=== PATIENT | male | born 1935 | race Caucasian/White ===

== ENCOUNTER → 2017-04-14 | Outpatient (CLI) | payer OTHER ==
[~2017-04-14] MED LIST: AMLO5 PO; ASPI325 PO; ATEN50 PO; CALCIUM 1,0001 EACH PO; Cyclobenzaprine5 MG PO; Desyrel50 MG; FISH OIL 1,2001 EACH PO; HYDR1TAB94 PO; SERT100 PO; VITAMIN E1000 UNIT PO
[2017-04-14 15:16] LABS: BASOPHILS ABSOLUTE AUTO 0.02 K/mm3 (0.00-0.23); BASOPHILS PERCENT AUTO 0 % (0-2); EOSINOPHILS ABSOLUTE AUTO 0.08 K/mm3 (0.00-0.68); EOSINOPHILS PERCENT AUTO 1 % (0-6); Hematocrit 33.4 % (37.0-53.0); IMMATURE GRAN ABSOLUTE AUTO 0.03 K/mm3 (0.00-0.10); IMMATURE GRAN PERCENT AUTO 0 % (0-1); LYMPHOCYTES ABSOLUTE AUTO 1.04 K/mm3 (0.84-5.20); LYMPHOCYTES PERCENT AUTO 12 % (21-46); MONOCYTES PERCENT AUTO 9 % (4-13); Mean Corpuscular HGB 30.8 pg (26.0-34.0); Mean Corpuscular HGB Conc 32.9 g/dL (31.5-36.5); Mean Corpuscular Volume 94 fL (80-100); Mean Platelet Volume 9.4 fL (9.1-12.4); NEUTROPHILS ABSOLUTE AUTO 6.87 K/mm3 (1.96-9.15); NEUTROPHILS PERCENT AUTO 78 % (41-73); Platelet Count 172 K/mm3 (150-400); RDW Coefficient Variation 12.7 % (11.7-14.2); RDW Standard Deviation 43.8 fL (35.1-46.3); Red Blood Cell Count 3.57 M/mm3 (4.30-5.90); White Blood Cell Count 8.84 K/mm3 (4.00-11.30)
[2017-04-14 15:23] LABS: Bun/Creatinine Ratio 33.9 (12.0-20.0); Calcium, Blood 9.8 mg/dL (8.5-10.1); Creatinine, Blood 2.57 mg/dL (0.60-1.20)
== END | disposition home or self-care (01) ==
LOC: LAB EV 15:13
PROVIDERS: Family Medicine
DX: M54.5 Low back pain (principal)
CPT/HCPCS: 80048; 85025

== ENCOUNTER → 2017-04-15 | Outpatient (CLI) | payer OTHER ==
[2017-04-15 11:03] LABS: BASOPHILS ABSOLUTE AUTO 0.01 K/mm3 (0.00-0.23); BASOPHILS PERCENT AUTO 0 % (0-2); EOSINOPHILS ABSOLUTE AUTO 0.28 K/mm3 (0.00-0.68); EOSINOPHILS PERCENT AUTO 5 % (0-6); Hematocrit 31.6 % (37.0-53.0); Hemoglobin 10.4 g/dL (13.5-17.5); IMMATURE GRAN ABSOLUTE AUTO 0.01 K/mm3 (0.00-0.10); IMMATURE GRAN PERCENT AUTO 0 % (0-1); LYMPHOCYTES ABSOLUTE AUTO 0.71 K/mm3 (0.84-5.20); LYMPHOCYTES PERCENT AUTO 12 % (21-46); MONOCYTES ABSOLUTE AUTO 0.75 K/mm3 (0.16-1.47); MONOCYTES PERCENT AUTO 13 % (4-13); Mean Corpuscular HGB Conc 32.9 g/dL (31.5-36.5); Mean Corpuscular Volume 94 fL (80-100); Mean Platelet Volume 9.2 fL (9.1-12.4); NEUTROPHILS PERCENT AUTO 69 % (41-73); Platelet Count 156 K/mm3 (150-400); RDW Coefficient Variation 12.9 % (11.7-14.2); RDW Standard Deviation 44.5 fL (35.1-46.3); Red Blood Cell Count 3.35 M/mm3 (4.30-5.90); White Blood Cell Count 5.76 K/mm3 (4.00-11.30)
[2017-04-15 11:19] LABS: Albumin, Blood 3.1 g/dL (3.4-5.0); Bilirubin, Total 0.2 mg/dL (0.1-1.0); Bun/Creatinine Ratio 32.5 (12.0-20.0); Calcium, Blood 9.1 mg/dL (8.5-10.1); Creatinine, Blood 2.4 mg/dL (0.60-1.20); Globulin, Blood 3.2 g/dL (2.2-4.0); Potassium, Blood 5.9 mmol/L (3.5-5.5); Total Protein, Blood 6.3 g/dL (6.4-8.2)
== END ==
LOC: LAB EV 11:00
PROVIDERS: Family Medicine
DX: J06.9 Acute upper respiratory infection, unspecified (principal)
CPT/HCPCS: 80053; 85025

== ENCOUNTER → 2019-06-04 | Outpatient (CLI) | payer OTHER ==
[2019-06-04 11:54] LABS: Source, Urine Clean Catch
[2019-06-04 12:07] LABS: Leukocyte Esterase, Urine Neg (Neg); Nitrite, Urine Neg (Neg)
[2019-06-04 12:08] LABS: Appearance, Urine Clear (Clear); Bilirubin, Urine Neg (Neg); Blood, Urine Neg (Neg); Color, Urine Yellow (P-Yellow); Glucose Qualitative, Urine Neg (Normal); Ketones, Urine Neg (Neg); Protein, Urine 3+ (Neg); Urobilinogen, Urine NORM (Normal)
[2019-06-04 12:55] LABS: Bacteria Not Seen /hpf; Red Blood Cells, Urine Not Seen /hpf (0-2); Squamous Epithelial Cells Rare /hpf (Few); White Blood Cells, Urine 0-2 /hpf (0-5)
== END | disposition home or self-care (01) ==
LOC: LAB EV 11:30
PROVIDERS: Physician Assistant
DX: R35.0 Frequency of micturition (principal)
CPT/HCPCS: 81001

== ENCOUNTER → 2019-07-05 | Outpatient (CLI) | payer OTHER ==
[2019-07-05 16:55] LABS: Appearance, Urine Clear (Clear); Bilirubin, Urine Neg (Neg); Blood, Urine Neg (Neg); Color, Urine Yellow (P-Yellow); Glucose Qualitative, Urine Neg (Normal); Ketones, Urine Neg (Neg); Leukocyte Esterase, Urine Neg (Neg); Nitrite, Urine Neg (Neg); Protein, Urine 3+ (Neg); Specific Gravity, Urine 1.015 (1.003-1.022); Urobilinogen, Urine NORM (Normal)
[2019-07-05 16:56] LABS: Bacteria Not Seen /hpf; Hyaline Casts Rare /lpf (0-2); Red Blood Cells, Urine Not Seen /hpf (0-2); Squamous Epithelial Cells Rare /hpf (Few); White Blood Cells, Urine Not Seen /hpf (0-5)
== END | disposition home or self-care (01) ==
LOC: LAB EV 16:33
PROVIDERS: Physician Assistant
DX: R35.0 Frequency of micturition (principal)
CPT/HCPCS: 81001

== ENCOUNTER 2019-08-30 13:05 | Inpatient (IN) | payer OTHER ==
[~2019-08-30] VITALS: Ht 182.9 cm; Wt 85.0 kg
[~2019-08-30 13:05] MED LIST changes: -ASPI325 PO; +Aspirin EC81 MG PO
[2019-08-30] MEDS ORDERED: FUROSEMIDE20 MG PO (13:26)
[2019-08-30] MEDS ORDERED: QUETIAPINE FUMA25 MG PO (13:27)
[2019-08-30 13:43] LABS: BASOPHILS ABSOLUTE AUTO 0.02 K/mm3 (0.00-0.23); BASOPHILS PERCENT AUTO 0 % (0-2); EOSINOPHILS PERCENT AUTO 6 % (0-6); Hematocrit 33.8 % (37.0-53.0); Hemoglobin 10.8 g/dL (13.5-17.5); IMMATURE GRAN ABSOLUTE AUTO 0.01 K/mm3 (0.00-0.10); IMMATURE GRAN PERCENT AUTO 0 % (0-1); LYMPHOCYTES ABSOLUTE AUTO 2.69 K/mm3 (0.84-5.20); LYMPHOCYTES PERCENT AUTO 33 % (21-46); MONOCYTES ABSOLUTE AUTO 0.69 K/mm3 (0.16-1.47); MONOCYTES PERCENT AUTO 8 % (4-13); Mean Corpuscular HGB 30.9 pg (26.0-34.0); Mean Corpuscular Volume 97 fL (80-100); Mean Platelet Volume 9.8 fL (9.1-12.4); NEUTROPHILS ABSOLUTE AUTO 4.37 K/mm3 (1.96-9.15); NEUTROPHILS PERCENT AUTO 53 % (41-73); Platelet Count 171 K/mm3 (150-400); RDW Coefficient Variation 12.6 % (11.7-14.2); RDW Standard Deviation 44.9 fL (35.1-46.3); White Blood Cell Count 8.28 K/mm3 (4.00-11.30)
[2019-08-30 14:03] LABS: Albumin, Blood 3.5 g/dL (3.4-5.0); Albumin/Globulin Ratio 0.9 (0.8-1.8); Bilirubin, Total 0.2 mg/dL (0.1-1.0); Bun/Creatinine Ratio 24.7 (12.0-20.0); Calcium, Blood 9.9 mg/dL (8.5-10.1); Creatinine, Blood 3.76 mg/dL (0.60-1.20); Globulin, Blood 3.7 g/dL (2.2-4.0); Potassium, Blood 5.8 mmol/L (3.5-5.5); Total Protein, Blood 7.2 g/dL (6.4-8.2)
[2019-08-30] MEDS ORDERED: IRON PO (14:19)
[2019-08-30 15:11] LABS: Magnesium, Blood 2.4 mg/dL (1.6-2.4); Phosphorus, Blood 4.2 mg/dL (2.5-4.9)
[2019-08-30 19:55] LABS: Albumin, Blood 3.7 g/dL (3.4-5.0); Albumin/Globulin Ratio 0.9 (0.8-1.8); Bilirubin, Total 0.3 mg/dL (0.1-1.0); Bun/Creatinine Ratio 25.8 (12.0-20.0); Calcium, Blood 10.2 mg/dL (8.5-10.1); Creatinine, Blood 3.57 mg/dL (0.60-1.20); Potassium, Blood 5.2 mmol/L (3.5-5.5); Total Protein, Blood 7.7 g/dL (6.4-8.2)
--- NOTE | 2019-08-30 23:50 | NUR ---
HIGH BP AFTER PT STOOD TO USE RR. WILL RETAKE AFTER REST.
[2019-08-31 04:36] LABS: International Normalized Ratio 0.99; Prothrombin Time Results 10.6 Sec (9.7-11.5)
[2019-08-31 04:37] LABS: Magnesium, Blood 2.3 mg/dL (1.6-2.4)
[2019-08-31 04:38] LABS: Albumin, Blood 3.1 g/dL (3.4-5.0); Albumin/Globulin Ratio 0.9 (0.8-1.8); Bilirubin, Total 0.4 mg/dL (0.1-1.0); Bun/Creatinine Ratio 25.4 (12.0-20.0); Calcium, Blood 9.6 mg/dL (8.5-10.1); Creatinine, Blood 3.55 mg/dL (0.60-1.20); Globulin, Blood 3.5 g/dL (2.2-4.0); Total Protein, Blood 6.6 g/dL (6.4-8.2)
--- NOTE | 2019-08-31 05:28 | NUR ---
SHIFT SUMMARY PT SLEEPING IN ROOM COMFORTABLY AT THIS TIME. NO ACUTE CHANGES IN STATUS T/O NIGHT. PT SLEPT WELL. DENIED ANY CP OR SOB RESP EVEN UNLABORED ON RA W. SATS >92%. DEXTROSE 5% INFUSING IN PIV AT 50ML/HR. PT HR REMAINS LOW. MADE NPO AT MIDNIGHT FOR PACEMAKER PLACEMENT TODAY. PT ALSO SCHEDULED FOR ECHO TODAY. DENIED OTHER NEEDS PT USES CALL LIGHT APPRORIATELY. CALL LIGHT IN REACH.
--- NOTE | 2019-08-31 06:22 | NUR ---
UPDATE TERMINAL MAKE UP OPERATOR IN TO REVIEW TELE. 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 HR INCREASED DURING NIGHT. PER CADIOLOGIST OK TO LIFT NPO STATUS, AND WILL MONITOR 24HR TO EVALUATE IF NEED FOR PACEMAKER REMAINS. ORDERS TO AMBULATE PT WHILE MONITORING HR.
--- NOTE | 2019-08-31 17:50 | NUR ---
PCU DAYSHIFT SUMMARY PATIENT ALERT AND ORIENTED TO SELF, LOCATION AND FAMILY. PATIENT CONFUSED TO PLAN OF CARE AT TIMES, REORIENTS EASILY. PATIENT WORKED WITH PT/OT THIS SHIFT. SBA WITH WALKER - STRONG STAND AND SHUFFLED GAIT NOTED. PATIENT SINUS RADHA AT 28 BEATS PER MIN THIS AM -> DUAL CHAMBER PACEMAKER PLACED TODAY -> NOW 100% ATRIAL PACED AT 60 BPM. RESP E/U ON ROOM AIR. PATIENT DENIES PAIN. HYPERTENSION NOTED AFTER PACER - NOTIFIED MD DELANEY -> NEW ORDERS GIVEN. FAMILY AT BEDSIDE T/O SHIFT, VERY SUPPORTIVE. PACER SITE WNL WITH NO S/SX OF BLEEDING NOTED -> ARM SLING APPLIED PER ORDER. WILL CONTINUE TO MONITOR AND REPORT TO NOC SHIFT RN.
--- NOTE | 2019-09-01 03:41 | NUR ---
ASSUMED CARE OF PATIENT AT 1915. PATIENT CONFUSED ON AND OFF, IS ABLE TO GET REORIENTED EASILY. COACHED PATIENT ON THE USE OF CALL LIGHT FOR ANY AMBULATING REQUIRED. PATIENT AGREEABLE AND HITS CALL LIGHT WHEN NEEDING TO USE BATHROOM. CALL LIGHT WITHIN REACH, BED ALARM ON, BED LOWERED TO LOWEST POSITION. WILL CONTINUE TO MONITOR UNTIL END OF SHIFT.
[2019-09-01 04:30] LABS: Hematocrit 34.8 % (37.0-53.0)
[2019-09-01 05:10] LABS: Bun/Creatinine Ratio 22.2 (12.0-20.0); Calcium, Blood 9.1 mg/dL (8.5-10.1); Creatinine, Blood 3.33 mg/dL (0.60-1.20); Potassium, Blood 4.8 mmol/L (3.5-5.5)
--- NOTE | 2019-09-01 07:32 | NUR ---
AM NOTE... ASSUMED CARE OF PT APROX 0700, PT IS A&Ox3 WITH DEMENTIA AT BASELINE, PT IS 1 DAY S/P PACEMAKER PLACEMENT. PT IS CURRENTLY 100% PACED IN THE 60'S PER PACKAGING OPERATOR. PT HAS NO EDEMA ON ASSESSMENT. PACER SITE IS C/D/I WITH NO SWELLING BLEEDING OR HEMATOMA NOTED. PT DENIES PAIN AT THIS TIME. L/S CLEAR T/O DIM IN THE BASES ON RA. BT PRESENT AND NORMOACTIVE,ABD IS SOFT AND NONTENDER TO PALP. VS STABLE AT THIS TIME. POSSIBLE D/C HOME TODAY. CALL LIGHT IN REACH , BED ALARM IS ON WILL CONTINUE TO MONITOR.
[2019-09-07 11:09] LABS: ANA DIRECT Negative (Negative); ANTIMYELOPEROXIDASE (MPO) ABS <9.0 U/mL (0.0-9.0); ANTIPROTEINASE 3 (PR-3) ABS <3.5 U/mL (0.0-3.5); ATYPICAL PANCA <1:20 titer (Neg:<1:20); CYTOPLASMIC (C-ANCA) <1:20 titer (Neg:<1:20); PERINUCLEAR (P-ANCA) <1:20 titer (Neg:<1:20)
== END 2019-09-01 15:18 | disposition home or self-care (01) | DRG 908 ==
LOC: ER 13:05 → PCU 15:49
PROVIDERS: Emergency Medicine; Internal Medicine; Internal Medicine Cardiovascular Disease; Nurse Practitioner Acute Care; Student in an Organized Health Care Education/Training Program; ADMIT Family Medicine
PROC: 0JH606Z Insertion of Pacemaker, Dual Chamber into Chest Subcutaneous Tissue and Fascia, Open Approach (ICD-10-PCS; principal; 2019-08-31)
PROC: 02HK3JZ Insertion of Pacemaker Lead into Right Ventricle, Percutaneous Approach (ICD-10-PCS; 2019-08-31)
PROC: 02H63JZ Insertion of Pacemaker Lead into Right Atrium, Percutaneous Approach (ICD-10-PCS; 2019-08-31)
DX: T44.7X1A Poisoning by beta-adrenoreceptor antagonists, accidental (unintentional), initial encounter (principal); N18.4 Chronic kidney disease, stage 4 (severe); F02.81 Dementia in other diseases classified elsewhere, unspecified severity, with behavioral disturbance; I44.39 Other atrioventricular block; I12.9 Hypertensive chronic kidney disease with stage 1 through stage 4 chronic kidney disease, or unspecified chronic kidney disease; Z79.82 Long term (current) use of aspirin; E78.5 Hyperlipidemia, unspecified; E87.5 Hyperkalemia; D50.9 Iron deficiency anemia, unspecified; G30.9 Alzheimer's disease, unspecified
CPT/HCPCS: 33208; 36415; 71045; 71046; 80048; 80053; 82550; 82947; 83520; 83735; 84100; 84443; 85014; 85018; 85025; 85610; 86256; 86850; 86900; 86901; 93005; 93010; 93306; 96361; 96365; 96375; 96376; 97110; 97116; 97162; 99152; 99153; 99285-25; A9270; C1781; C1785; C1894; C1898; J0610; J1610; J1644; J1815; J2250; J2405; J3010; J3370; J7030; J7040; J7070

== ENCOUNTER 2021-04-23 09:30 | Inpatient (IN) | payer OTHER ==
[~2021-04-23] VITALS: Ht 182.9 cm; Wt 84.5 kg
[~2021-04-23 09:30] MED LIST changes: -Desyrel50 MG; +FUROSEMIDE20 MG PO; +IRON PO; +QUETIAPINE FUMA25 MG PO; +TRAZ50 PO
[2021-04-23 10:15] LABS: BASOPHILS ABSOLUTE AUTO 0.02 K/mm3 (0.00-0.23); BASOPHILS PERCENT AUTO 0 % (0-2); EOSINOPHILS ABSOLUTE AUTO 0.02 K/mm3 (0.00-0.68); EOSINOPHILS PERCENT AUTO 0 % (0-6); Hematocrit 28.8 % (37.0-53.0); Hemoglobin 9.2 g/dL (13.5-17.5); IMMATURE GRAN ABSOLUTE AUTO 0.06 K/mm3 (0.00-0.10); IMMATURE GRAN PERCENT AUTO 0 % (0-1); LYMPHOCYTES ABSOLUTE AUTO 0.38 K/mm3 (0.84-5.20); LYMPHOCYTES PERCENT AUTO 3 % (21-46); MONOCYTES ABSOLUTE AUTO 0.93 K/mm3 (0.16-1.47); MONOCYTES PERCENT AUTO 7 % (4-13); Mean Corpuscular HGB 30.6 pg (26.0-34.0); Mean Corpuscular HGB Conc 31.9 g/dL (31.5-36.5); Mean Corpuscular Volume 96 fL (80-100); Mean Platelet Volume 9.4 fL (9.1-12.4); NEUTROPHILS ABSOLUTE AUTO 12.57 K/mm3 (1.96-9.15); NEUTROPHILS PERCENT AUTO 90 % (41-73); Platelet Count 269 K/mm3 (150-400); RDW Coefficient Variation 12.9 % (11.7-14.2); RDW Standard Deviation 44.9 fL (35.1-46.3); Red Blood Cell Count 3.01 M/mm3 (4.30-5.90); White Blood Cell Count 13.98 K/mm3 (4.00-11.30)
[2021-04-23 10:19] LABS: Source, Urine Clean Catch
[2021-04-23 10:25] LABS: Bilirubin, Urine Neg (Neg); Blood, Urine 1+ (Neg); Glucose Qualitative, Urine Neg (Neg); Ketones, Urine Neg (Neg); Leukocyte Esterase, Urine Neg (Neg); Nitrite, Urine Neg (Neg); Protein, Urine 2+ (Neg); Specific Gravity, Urine 1.015 (1.003-1.022); Urobilinogen, Urine NORM (Normal)
[2021-04-23 10:39] LABS: Appearance, Urine Clear (Clear); Color, Urine Yellow (P-Yellow)
[2021-04-23 10:40] LABS: Albumin, Blood 2.6 g/dL (3.4-5.0); Albumin/Globulin Ratio 0.6 (0.8-1.8); Bilirubin, Total 0.6 mg/dL (0.1-1.0); Bun/Creatinine Ratio 26.9 (12.0-20.0); Calcium, Blood 9.3 mg/dL (8.5-10.1); Creatinine, Blood 3.24 mg/dL (0.60-1.20); Globulin, Blood 4.2 g/dL (2.2-4.0); Potassium, Blood 4.3 mmol/L (3.5-5.5); Total Protein, Blood 6.8 g/dL (6.4-8.2)
[2021-04-23 10:41] LABS: Bacteria Rare /hpf; Squamous Epithelial Cells Rare /hpf (Few); White Blood Cells, Urine 0-2 /hpf (0-5)
[2021-04-23 10:47] LABS: Influenza A, PCR NEGATIVE (NEGATIVE); Influenza B, PCR NEGATIVE (NEGATIVE); Resp Syncytial Virus, PCR NEGATIVE (NEGATIVE); SARS-Cov-2 (COVID-19) PCR, MMC NEGATIVE (NEGATIVE)
[2021-04-23 14:34] LABS: Influenza A, PCR NEGATIVE (NEGATIVE); Influenza B, PCR NEGATIVE (NEGATIVE); Resp Syncytial Virus, PCR NEGATIVE (NEGATIVE); SARS-Cov-2 (COVID-19) PCR, MMC NEGATIVE (NEGATIVE)
[2021-04-23] MEDS ORDERED: ELIQUIS2.5 MG PO (16:02)
[2021-04-23] MEDS ORDERED: FISH OIL-VIT D1 EACH PO (16:07)
[2021-04-23] MEDS ORDERED: METO25ER PO (16:08)
[2021-04-23] MEDS ORDERED: MONDOXYNE NL100 MG PO (16:09)
[2021-04-23] MEDS ORDERED: Norco 5-325 Ta1 EACH PO (16:11)
[2021-04-23] MEDS ORDERED: [UNRECOGNIZED DRUG - OTHER] PO (16:44)
--- NOTE | 2021-04-23 18:30 | NUR ---
SHIFT SUMMARY PATIENT IS ALERT AND ORIENTED X2-3, PLEASANT AND COOPERATIVE WITH CARE. THE PATIENT HAS SPOUSE AT BEDSIDE. THE PATIENT IS CURRENTLY ON 4LPM OF O2 SATTING AT 92% CONTINUOUS PULSE OX AT BEDSIDE. DESATS WITH MOBILITY. THE PATIENT WAS BLADDER SCANNED ONCE THIS SHIFT 169MLS. PATIENT VOIDED SHORTLY AFTER. THE HAS A PACEMAKER. ON TELE PACED AT 83. THE PATIENT USES A URINAL AT BEDSIDE. IV IN THE RIGHT FOREARM. MED REC DONE THIS SHIFT. VSS. NO ACUTE CHANGES THIS SHIFT. CALL LIGHT WITHIN REACH.
--- NOTE | 2021-04-24 04:37 | NUR ---
SHIFT SUAMMRY: A&OX2, BASELINE DEMENTIA UPON ENETERING ROOM PATIENT WAS TEARFUL AND ANXIOUS STATING "I THOUGHT I WAS ABANDONED HERE" PATIENT REDIRECTED EASILY. ON 4L O2, RA IS BASELINE. DYPSNEA AT REST, TACYPNEA, AND ACCESSORY MUSCLE USE. PATIENT DENIES SOB, LCTA BUT DIMINISHED. PATIENT REPORTS DECREASED UOP AND PAIN WITH URNINATION S/P CATH PERFOMRNED IN ED. BEDSIDE ABD US COMPLETED TONIGHT. SCATTERED ECCYMOSIS AND REDNESS. TELE=AVPACED.
[2021-04-24 05:48] LABS: BASOPHILS ABSOLUTE AUTO 0.01 K/mm3 (0.00-0.23); BASOPHILS PERCENT AUTO 0 % (0-2); EOSINOPHILS PERCENT AUTO 0 % (0-6); Hematocrit 27.4 % (37.0-53.0); Hemoglobin 8.7 g/dL (13.5-17.5); IMMATURE GRAN ABSOLUTE AUTO 0.05 K/mm3 (0.00-0.10); IMMATURE GRAN PERCENT AUTO 0 % (0-1); LYMPHOCYTES PERCENT AUTO 5 % (21-46); MONOCYTES ABSOLUTE AUTO 0.79 K/mm3 (0.16-1.47); MONOCYTES PERCENT AUTO 6 % (4-13); Mean Corpuscular HGB 30.5 pg (26.0-34.0); Mean Corpuscular HGB Conc 31.8 g/dL (31.5-36.5); Mean Corpuscular Volume 96 fL (80-100); Mean Platelet Volume 9.7 fL (9.1-12.4); NEUTROPHILS PERCENT AUTO 89 % (41-73); Platelet Count 266 K/mm3 (150-400); RDW Standard Deviation 46.7 fL (35.1-46.3); Red Blood Cell Count 2.85 M/mm3 (4.30-5.90); White Blood Cell Count 13.45 K/mm3 (4.00-11.30)
[2021-04-24 05:59] LABS: Albumin, Blood 2.2 g/dL (3.4-5.0); Anion Gap 9 mmol/L (6-16); Blood Urea Nitrogen 89 mg/dL (8-24); Bun/Creatinine Ratio 27.4 (12.0-20.0); CO2, Blood 19 mmol/L (21-32); Calcium, Blood 8.7 mg/dL (8.5-10.1); Chloride, Blood 112 mmol/L (98-108); Creatinine, Blood 3.25 mg/dL (0.60-1.20); Glomerular Filtration Rate 18 (60-); Glucose, Blood 143 mg/dL (70-99); Magnesium, Blood 2.1 mg/dL (1.6-2.4); Phosphorus, Blood 4.8 mg/dL (2.5-4.9); Potassium, Blood 4.6 mmol/L (3.5-5.5); Sodium, Blood 140 mmol/L (136-145)
[2021-04-24] MEDS ORDERED: ASPI81CH PO (12:02)
[2021-04-24] MEDS ORDERED: VITAMIN B COMP0.4 MG PO (12:04)
[2021-04-24] MEDS ORDERED: VITAMIN D325 MC3 PO (12:05)
[2021-04-24] MEDS ORDERED: UBID10 PO (12:05)
[2021-04-24] MEDS ORDERED: MAGNESIUM OXID500 MG PO (12:05)
[2021-04-24] MEDS ORDERED: MULTIPLE VITAM1 EACH PO (12:06)
--- NOTE | 2021-04-24 18:12 | NUR ---
SHIFT SUMMARY: PT A/O X 2-3 CONFUSED AT TIMES. PT REPORTED HE HAD FX HIS RIBS WITH A FALL ON RIGHT SIDE PRIOR TO HOSPITALIZATION AND DID C/O PAIN AT TIMES WITH MOVEMENT. HE DID RECEIVE OXYCODONE AND IT WAS EFFECTIVE IN TREATING HIS PAIN. REVIEWED CXR REPORT AND NO SIGNS OF FX ON REPORT. REPORTED THE FALL WAS ACTUALLY SEVERAL MONTHS AGO. PT HAD INCREASED O2 REQUIREMENTS WITH ACTIVITY TODAY WORKING WITH PT/OT DURING EACH SESSION. O2 HAD TO BE TITRATED TO 4 LPM VIA NC TO KEEP SATS AT 90%. PT HAS NON PRODUCTIVE COUGH AT TIMES. PT REFUSING TO EAT MEALS PROVIDED BECAUSE HE DOES NOT LIKE WHAT IS PROVIDED WITH RENAL DIET. PT WILL EAT APPLESAUCE. DIETARY REQUESTED TO SPEAK TO PT THIS AM.
[2021-04-25 05:25] LABS: Hematocrit 28.5 % (37.0-53.0); Hemoglobin 9.1 g/dL (13.5-17.5)
[2021-04-25 05:47] LABS: Albumin, Blood 2.6 g/dL (3.4-5.0); Anion Gap 9 mmol/L (6-16); Blood Urea Nitrogen 100 mg/dL (8-24); Bun/Creatinine Ratio 30.2 (12.0-20.0); CO2, Blood 21 mmol/L (21-32); Calcium, Blood 9.5 mg/dL (8.5-10.1); Chloride, Blood 110 mmol/L (98-108); Creatinine, Blood 3.31 mg/dL (0.60-1.20); Glomerular Filtration Rate 18 (60-); Glucose, Blood 132 mg/dL (70-99); Magnesium, Blood 2.3 mg/dL (1.6-2.4); Phosphorus, Blood 4.2 mg/dL (2.5-4.9); Potassium, Blood 4.4 mmol/L (3.5-5.5); Sodium, Blood 140 mmol/L (136-145)
--- NOTE | 2021-04-25 06:34 | NUR ---
SHIFT SUMMARY PT IS AN 86 Y/O MALE, ADMITTED FOR ACUTE HYPOXIC PNA. HE IS A&O X 2, FORGETFUL AT TIMES. INCONTINENT OF BLADDER DURING THE NIGHT. TELE SHOWED PACED RHYTHM IN THE 80S. PT WAS ON 4L AT START OF SHIFT, WITH PERIODS OF DYSPNEA AND SATS DOWN TO THE 70S. PT IS SLOW TO RECOVER FROM ANY ACTIVITY OR EXERTION, AND O2 INCREASED TO 6L 02 DURING THE NIGHT, WITH PERIODS OF UP TO 15L VIA HIGH FLOW TO HELP PT RECOVER. VITAL SIGNS OTHERWISE STABLE. PT MEDICATED THIS AM FOR SEVERE SIDE AND ABD PAIN WITH PRN OXYCODONE. NO C/O NAUSEA. NO OTHER ACUTE CHANGES IN PT CONDITION NOTED DURING THE NIGHT. WILL CONTINUE TO MONITOR AND TREAT PER EMAR UNTIL HAND OFF TO DAY SHIFT RN.
--- NOTE | 2021-04-25 17:59 | NUR ---
SHIFT SUMMARY: PT A/O X 2, PLEASANT AND COOPERATIVE. PT HAS ACTIVITY INTOLERANCE AND BECOMES VERY SOB WITH ANY EXERTION. ATTEMPTED TO TITRATE O2 TO 2-3 LITERS PER MINUTE T/OUT DAY BUT PT CONTINUED TO NEED MORE OXYGEN AND IS CURRENTLY ON 5-6 LPM VIA HIGH FLOW HUMIDIFIED NC. PT OFTEN REMOVES AND FORGETS HE IS REMOVING HIS OXYGEN AND NEEDS RE-DIRECTION. PT URINATING WELL T/OUT SHIFT CLEAR LIGHT YELLOW URINE. PT PAIN MANAGED WITH OXYCODONE.
--- NOTE | 2021-04-25 18:04 | NUR ---
Spoke with Primary RN Bianka and discussed case. Family is requesting Palliative Care visit and have questions regarding hospice and comfort care. Pt resting in bed upon arrival. Pt is confused and denies pain at this time. Pt's spouse and daughter at bedside. Offered therapeutic listening and answered questions regarding hospice. Educated on hospice philosophy with V/U made by family. Pt remains confused with poor insight to his prognosis. Family reports Pt's spouse is POA. Continued conversation outside of Pt's room with family. Provided hospice brochures and continued therapeutic listening. Family does report concerns regarding certain aspects of care that Pt may need. Family express concerns regarding Pt's history of falling and inability to lift Pt up. Instructed family that D/C wedding planner may have ideas for family to consider for caregiver support. Family expresses appreciation and report no other concerns at this time. Palliative Care will F/U with Pt and family for supportive and therapeutic visits.
[2021-04-26 05:50] LABS: Hematocrit 27.2 % (37.0-53.0); Hemoglobin 8.7 g/dL (13.5-17.5)
--- NOTE | 2021-04-26 05:51 | NUR ---
SHIFT SUMMARY PATIENT ALERT AND ORIENTED X2. HAD NO COMPLAINTS OF PAIN. DESATS EASILY UPON EXERTION. NO ACUTE ISSUES NOTED OVERNIGHT. BED IN LOWEST POSITION WITH WHEELS LOCKED AND ALARM ON. CALL LIGHT WITHIN REACH. REPORT GIVEN TO ONCOMING RN.
[2021-04-26 06:09] LABS: Albumin, Blood 2.4 g/dL (3.4-5.0); Anion Gap 10 mmol/L (6-16); Blood Urea Nitrogen 104 mg/dL (8-24); Bun/Creatinine Ratio 30.3 (12.0-20.0); CO2, Blood 19 mmol/L (21-32); Chloride, Blood 111 mmol/L (98-108); Creatinine, Blood 3.43 mg/dL (0.60-1.20); Glomerular Filtration Rate 17 (60-); Glucose, Blood 130 mg/dL (70-99); Magnesium, Blood 2.5 mg/dL (1.6-2.4); Phosphorus, Blood 5.7 mg/dL (2.5-4.9); Potassium, Blood 4.8 mmol/L (3.5-5.5); Sodium, Blood 140 mmol/L (136-145)
--- NOTE | 2021-04-26 12:32 | NUR ---
Spoke with family out in medical floor waiting room. Offered supportive listening as family reports decision for hospice. They report speaking with Dr Mukherjee and he will place hospice referral. Family expresses appreciation of conversation that took place yesterday. No other concerns reported at this time.
--- NOTE | 2021-04-26 14:15 | NUR ---
COMFORT CARE PATIENT TRANSITIONED TO COMPORT CARE. ON 8L O2 VIA NC. PATIENTS AT BEDISDE. PATIENT RESTING COMFORTABLY. WILL CONTINUE TO MONITOR
--- NOTE | 2021-04-26 14:28 | NUR ---
Received referral from [facility] Ruby On Rails Consultant (Cherry Lewis) on 04/26/2021. Patient is to discharge with orders for hospice and family elected [facility]. Gathered supporting documentation for referral (face sheet, labs, imaging, progress notes, palliative care note, and H&P) and sent to [facility] Hospice manager office (Donis Dixon) for review of hospice appropriateness and ability to accept patient onto service post discharge. Will await further information from hospice manager office regarding the above. Ana Cristina Pearson Referral Liaison
--- NOTE | 2021-04-26 18:47 | NUR ---
SHIFT SUMMARY PATIENT TRANSITIONED TO COMFORT CARE. PATIENT REFUSED ANY MEDICATIONS AND DENIED ANY PAIN, SOB, N/V. PATIENT FAMILY AT BEDSIDE T/O SHIFT. STARTED SHIFT ON 8L NC. PATIENT NOW ON RA. WILL CONTINUE TO MONITOR.
--- NOTE | 2021-04-27 05:50 | NUR ---
SHIFT SUMMARY PATIENT ALERT AND ORIENTED X2. MEDICATED PER EMAR FOR PAIN, INSOMNIA, AND ANXIETY. FAMILY AT BEDSIDE. NO ACUTE ISSUES NOTED OVERNIGHT. CALL LIGHT WITHIN REACH. REPORT GIVEN TO ONCOMING RN.
--- NOTE | 2021-04-27 10:08 | NUR ---
Comfort Care Visit Pt resting in bed with his eyes closed. Pt appears comfortable with no S/S of distress at this time. Pt left undisturbed at this time. Family at bedside and spoke with Pt's daughter Alisha. Answered questions and supportive listening. Spoke with [facility] Liasameer De La Paz. Ana Cristina reports plan to speak with family this afternoon. Possible D/C home with hospice tomorrow. Palliative Care will remain available.
--- NOTE | 2021-04-27 11:53 | NUR ---
Late Entry from 04/26/2021 at 1500: Received notification from [facility] Hospice director of vocational guidance (Donis Dixon) that patient is hospice appropriate and able to be accepted onto service post discharge. Will attempt to meet with patient and family tomorrow to further discuss the above. Will continue to monitor and follow for discharge. Ana Cristina Pearson Referral Liaison
--- NOTE | 2021-04-27 11:53 | NUR ---
Late Entry from 04/27/2021 at 1045: Met with patient's daughter (Alisha Bates) to further hospice services and election of [facility]. Patient's daughter is agreeable to the above. Discussed what hospice is (reserved for patients with a terminal diagnosis with life expectancy of 6 months or less). Discussed that some patients exceed the 6 months expectancy and stay on service while other patients may stabilize and come off hospice. Patient's daughter verbalized understanding of the above. Discussed with patient's daughter that hospice service focuses on quality of life at the end of life and that rather than measuring the quantity of days, the quality of those days would be measured. Discussed with patient's daughter that with hospice service the goal would be to keep the patient out of the hospital and comfortable by managing symptoms at home. Patient's daughter verbalized understanding. Discussed the people, prescriptions, and equipment of hospice. People- discussed the team of people and their roles (RNs, chaplains, therapists, LCSWs, CNAs, and volunteers) that would be there to support not only the patient but also their family during this time. Explained to the patient's daughter that the team would be custom tailored to the patient needs during this time. Patient's daughter verbalized understanding. Prescriptions- discussed that we utilize a mail order pharmacy ([facility] to provide medications related to the hospice diagnosis and for symptom management. All other medications that patient chose to stay on would be patient's and/or patient's family's responsibility to provide and pay for. Patient's daughter verbalized understanding. Discussed that upon discharge patient would be given three prescriptions, one for morphine 20mg/mL #30mL (0.25mL - 1mL PO/SL Q1H PRN SOB/pain), one for lorazepam 0.5mg #20 (1 - 2 PO Q4H PRN anxiety), and one for hyoscyamine 0.125mg SL tablets #30 (1 SL Q2H PRN secretions). Explained to the patient's daughter that as patient would not yet be admitted to hospice service at the time of discharge those prescriptions would be patient/patient's family's responsibility to fill and pay for. Patient's daughter verbalized understanding. Equipment- discussed with patient's daughter that we contract through [employer] to provide DME such as hospital beds, commodes, etc. to patient. Wrote order for DME (hospital bed, full rails, pump & pad, over bed table, and oxygen & e-tank at 1-10LPM) [facility]. Discussed with patient's daughter that [facility] does not supply the sheets for the beds. Discussed that one of two options can be used- either a twin extra-long fitted sheet OR a osorio sized flat sheet wrapped around the pump & pad. Patient's daughter verbalized understanding. Discussed with patient's daughter that once patient was admitted onto hospice services the goal would be for them to contact us ([facility]) over contacting 911 or presenting back to the hospital/ED. Patient's daughter verbalized understanding. Discussed the tentative discharge plans for Friday- 04/27/2021 at 1230 with preferred method of transport- medical transport via gurney. Discussed with patient's daughter that this headline writer would arrange transportation for patient. Patient's daughter verbalized understanding. Offered a chance for patient's daughter to ask questions regarding the above of which there were none. Will continue to monitor and follow as appropriate for discharge. Ana Cristina Pearson Referral Liaison
--- NOTE | 2021-04-27 11:59 | NUR ---
Patient is to discharge at 1230 with orders for hospice. Contacted [facility] (Mina) to arrange gurney transport to patient's residence. Pick-up at 1230 will be provided by [facility]. Faxed copy of face sheet, PCS form, VTS form, and DNR status to VTS and [facility] Business office per protocol. Placed copies of the above in nurse observer gravity prospecting for wood pile driver operator. Notified [facility] Ceramic Restorer (Raegan Lambert), [facility] (Erica Ledesma), Charge RNs (Ivette Stout and Maylin Antonio), and bedside RN (Anne Sexton) of the above. All are agreeable to the above. Requested discharge orders from hospitalist (Dr. Bay). Provided hard copy prescriptions for morphine and lorazepam to patient's daughter (Alisha Bates) on Friday- 04/27/2021. Faxed copies of discharge order and med list to [facility] Hospice justice professor. No further interventions required. Ana Cristina Pearson Referral Liaison
--- NOTE | 2021-04-27 12:09 | NUR ---
Received referral from [facility] Needle Bar Molder (Raegan Lambert) on 04/27/2021. Patient is to discharge with orders for hospice and family elected [facility]. Gathered supporting documentation for referral (face sheet, labs, imaging, progress notes, palliative care note, and H&P) and sent to [facility] Hospice driver helper (Susan De Luna) for review of hospice appropriateness and ability to accept patient onto service post discharge. Will await further information from hospice driver helper regarding the above. Ana Cristina Pearson Referral Liaison
--- NOTE | 2021-04-27 13:24 | NUR ---
DISCHARGE SUMMARY PATIENT DISCHARGED HOME WITH HOSPICE. ALL BELONGINGS, DISCHARGE PAPERWORK AND SCRIPTS GIVEN TO FAMILY. PATIENT TAKEN VIA GURNEY TRANSPORTATION.
== END 2021-04-27 12:43 | disposition hospice, home (50) | DRG 193 ==
LOC: ER 09:30 → MEDS 09:31 → ENPENDDIS 04-27 11:47 → MEDS 04-27 12:43
PROVIDERS: Emergency Medicine; Internal Medicine Nephrology; ADMIT Internal Medicine
DX: J18.9 Pneumonia, unspecified organism (principal); J96.01 Acute respiratory failure with hypoxia; I50.23 Acute on chronic systolic (congestive) heart failure; N18.4 Chronic kidney disease, stage 4 (severe); Z66 Do not resuscitate; E87.2 Acidosis; I13.0 Hypertensive heart and chronic kidney disease with heart failure and stage 1 through stage 4 chronic kidney disease, or unspecified chronic kidney disease; N17.9 Acute kidney failure, unspecified; N25.81 Secondary hyperparathyroidism of renal origin; Z20.822 Contact with and (suspected) exposure to COVID-19; D63.1 Anemia in chronic kidney disease; F32.A Depression, unspecified; E78.5 Hyperlipidemia, unspecified; G30.9 Alzheimer's disease, unspecified; F02.80 Dementia in other diseases classified elsewhere, unspecified severity, without behavioral disturbance, psychotic disturbance, mood disturbance, and anxiety; Z96.652 Presence of left artificial knee joint; E88.09 Other disorders of plasma-protein metabolism, not elsewhere classified; E86.9 Volume depletion, unspecified; D50.9 Iron deficiency anemia, unspecified; Z79.82 Long term (current) use of aspirin; Z90.49 Acquired absence of other specified parts of digestive tract; Z95.0 Presence of cardiac pacemaker; Z79.899 Other long term (current) drug therapy; Z99.81 Dependence on supplemental oxygen; Z88.0 Allergy status to penicillin; Z98.890 Other specified postprocedural states
CPT/HCPCS: 0241U; 36415; 51702; 71045; 76770; 80053; 80069; 81001; 83605; 83735; 83880; 84484; 85014; 85018; 85025; 87040; 93005; 93010; 93306; 94640; 94664; 94760; 94762; 96374; 96375; 97110; 97162; 97166; 97530; 99285-25; A9270; G0378; J0456; J0696; J0881; J1644; J1940; J2060; J7030; J7050